=== PATIENT | male | born 1960 ===

== ENCOUNTER → 2017-10-01 | Outpatient (CLI) | payer OTHER ==
[2017-10-02 06:57] LABS: HCV Non Reactive (NR)
== END | disposition home or self-care (01) ==
LOC: LAB SHORT 10:55 → LAB 10:55
PROVIDERS: Physician Assistant
DX: Z77.21 Contact with and (suspected) exposure to potentially hazardous body fluids (principal)
CPT/HCPCS: 84460; 86703; 86706; 86803

== ENCOUNTER → 2017-10-22 | Outpatient (CLI) | payer OTHER | LOC: LAB SHORT 08:43 → LAB 08:43 | PROVIDERS: Physician Assistant | DX: Z77.21 Contact with and (suspected) exposure to potentially hazardous body fluids (principal) | CPT/HCPCS: 86803 ==

== ENCOUNTER → 2017-12-12 | Outpatient (CLI) | payer OTHER ==
[~2017-12-12] MED LIST: MENS MULTIVITAMIN PO
[2017-12-13 13:09] LABS: HIV SCREEN 4TH GENERATION WRFX Non Reactive (Non Reactive)
== END | disposition home or self-care (01) ==
LOC: LAB 10:07 → LAB SHORT 10:07
PROVIDERS: Physician Assistant
DX: Z77.21 Contact with and (suspected) exposure to potentially hazardous body fluids (principal)
CPT/HCPCS: 87389

== ENCOUNTER → 2018-03-13 | Outpatient (CLI) | payer OTHER ==
[2018-03-15 01:08] LABS: HCV ANTIBODY <0.1 (0.0-0.9)
== END | disposition home or self-care (01) ==
LOC: LAB SHORT 08:25 → LAB 08:25
PROVIDERS: Physician Assistant
DX: Z77.21 Contact with and (suspected) exposure to potentially hazardous body fluids (principal)
CPT/HCPCS: 84460; 86317; 86703; 86803

== ENCOUNTER 2023-10-20 09:34 | Day surgery (SDC) | payer OTHER ==
[~2023-10-20] VITALS: Ht 180.3 cm; Wt 92.3 kg
[~2023-10-20 09:34] MED LIST changes: +Atropine Sulfate 0.1 MG/ML 10ML SYR ONE; +Glycopyrrolate 0.2 MG/ML 1MLVIAL ONE; +Lactated Ringer's 1,000 ML IV ONE; +Lidocaine 2% 5 ML SDV ONE; +Lidocaine HCl/Pf 1% 5 ML VIAL ONE; +Methylene Blue 1% 100 MG/10 ML VIAL ONE; +Ondansetron HCl 2 MG / ML 2ML Vial ONE; +ePHEDrine Sulfate 50 MG/ML 1ML Injection ONE; +propofoL 50 ML IV ONE
[2023-10-20] MEDS ORDERED: Milk Thistle175 M1 (10:32)
[2023-10-20] MEDS ORDERED: TADA10TA (10:32)
[2023-10-20] MEDS ORDERED: LEVSOD25 (10:32)
[2023-10-20] MEDS ORDERED: Vitamin D1000 UNI1 (10:33)
[2023-10-20] MEDS ORDERED: MAGCHL64ER (10:33)
[2023-10-20] MEDS ORDERED: Lactated Ringer's 1,000 ML IV ONE (10:51)
[2023-10-20 12:09] VITALS: BP 112/73
== END 2023-10-20 11:55 | disposition home or self-care (01) ==
LOC: ORSCSDS 09:34
PROVIDERS: Surgery
PROC: 0DBK8ZX Excision of Ascending Colon, Via Natural or Artificial Opening Endoscopic, Diagnostic (ICD-10-PCS; principal; 2023-10-20 11:00)
DX: Z12.11 Encounter for screening for malignant neoplasm of colon (principal); Z86.010 Personal history of colon polyps; D12.2 Benign neoplasm of ascending colon; Z80.0 Family history of malignant neoplasm of digestive organs; Z72.0 Tobacco use; Z79.899 Other long term (current) drug therapy
CPT/HCPCS: 88305; J0461; J2001; J2405; J2704; J7120; Q9968